=== PATIENT | female | born 1975 | race Caucasian/White ===

== ENCOUNTER 2024-04-14 13:57 | Outpatient (CLI) | payer BC ==
[~2024-04-14 13:57] MED LIST: Magnevist 469MG/ML 20 ML VIAL ONE
== END 2024-04-14 13:58 | disposition home or self-care (01) ==
LOC: CSHMRI 13:57
PROVIDERS: ATTEND Psychiatry & Neurology Neurology
DX: R56.9 Unspecified convulsions (principal)
CPT/HCPCS: 70553; A9579